=== PATIENT | male | born 1975 | race Caucasian/White ===

== ENCOUNTER 2021-05-15 17:24 | Emergency (ER) | payer MEDICARE, OTHER ==
[~2021-05-15] VITALS: Ht 170.2 cm; Wt 83.9 kg
--- NOTE | 2021-05-15 17:37 | NUR ---
TO ER BED 7, FROM [facility] WITNESSED SEIZURE [id number], NON VERBAL, CONNECTED TO MONITOR
[2021-05-15] MEDS ORDERED: LORA2VIA11 IM (17:43)
[2021-05-15] MEDS ORDERED: AMAN100T GT (17:43)
[2021-05-15] MEDS ORDERED: POLY17PO4 GT (17:43)
[2021-05-15] MEDS ORDERED: OXCA300T15 GT (17:43)
[2021-05-15] MEDS ORDERED: LACT-209 GT (17:43)
[2021-05-15] MEDS ORDERED: CLON0.2T GT (17:43)
[2021-05-15] MEDS ORDERED: BISA10SU11 RC ×2 (17:43)
[2021-05-15] MEDS ORDERED: METO25TA20 GT (17:43)
[2021-05-15] MEDS ORDERED: METO-295 GT (17:43)
[2021-05-15] MEDS ORDERED: ACET-868 GT (17:43)
[2021-05-15] MEDS ORDERED: CHLO473M5 MM (17:43)
[2021-05-15] MEDS ORDERED: LEVE500T20 GT (17:43)
[2021-05-15] MEDS ORDERED: DOCU50LI GT (17:43)
[2021-05-15] MEDS ORDERED: BACL10TA GT (17:43)
[2021-05-15] MEDS ORDERED: PHEN125O3 GT (17:43)
[2021-05-15] MEDS ORDERED: ONDA4VIA52 IM (17:43)
--- NOTE | 2021-05-15 17:55 | NUR ---
INTERIOR DESIGN TEACHER AT PT'S BEDSIDE
[2021-05-15 18:07] LABS: BASOPHILS % (AUTO) 0.2 % (0.0-2.0); EOSINOPHILS % (AUTO) 1.9 % (0.0-6.0); HEMATOCRIT 46 % (39-51); LYMPHOCYTES # (AUTO) 0.4 K/uL (0.8-4.8); LYMPHOCYTES % (AUTO) 7.8 % (20.0-44.0); MEAN CORPUSCULAR HGB CONC 35 g/dl (31.0-36.0); MEAN CORPUSCULAR VOLUME 96 fL (80-96); MONOCYTES # (AUTO) 0.5 K/uL (0.1-1.30); MONOCYTES % (AUTO) 8.4 % (2.0-12.0); NEUTROPHILS # (AUTO) 4.5 K/uL (1.8-8.9); NEUTROPHILS % (AUTO) 81.7 % (43.0-81.0); PLATELET COUNT (AUTO) 194 K/uL (150-450); WHITE BLOOD COUNT (AUTO) 5.5 K/uL (4.3-11.0)
[2021-05-15 18:16] LABS: CALCIUM, SERUM 8.9 mg/dL (8.5-10.1); CREATININE 0.7 mg/dL (0.6-1.3); POTASSIUM 3.7 mmol/L (3.5-5.1)
[2021-05-15 18:24] LABS: BILIRUBIN,DIRECT 0.2 mg/dL (0.0-0.2); BILIRUBIN,TOTAL 0.4 mg/dL (0.2-1.0)
[2021-05-15] MEDS ORDERED: LEVETIRACETAM (500MG) 500 MG in IV NS 0.9% 100 ML IV SCH (19:00)
[2021-05-15] MEDS ORDERED: LEVETIRACETAM (500MG) 500 MG/5 ML VIAL IV ONE (19:26)
--- NOTE | 2021-05-15 20:13 | NUR ---
DONNELL SIMON STAFF FROM [facility]
--- NOTE | 2021-05-15 21:01 | NUR ---
ATTEMPTED TO CALL ALFRED FROM [facility] WITH NO ANSWER X3 FOR JOE.
--- NOTE | 2021-05-15 21:06 | NUR ---
GAVE REPORT TO ALFRED NORIEGA [facility] FOR JOE
--- NOTE | 2021-05-15 21:15 | NUR ---
[facility] CALLED ETA 10-15MIN
--- NOTE | 2021-05-15 21:25 | NUR ---
SABRINA 210 AT BEDSIDE FOR PT TRANSPORT BACK TO HER FACILITY.
--- NOTE | 2021-05-15 21:29 | NUR ---
REPORT GIVEN TO EMT. PT IS IN STABLE CONDITION FOR TRANSPORT. IV REMOVED, INTACT CATH AND DRESSIGN IN PLACE.
[2021-05-15 21:31] VITALS: BP 128/76
== END 2021-05-15 21:31 | disposition home or self-care (01) ==
LOC: ER 17:28
DX: G40.909 Epilepsy, unspecified, not intractable, without status epilepticus (principal); I10 Essential (primary) hypertension; K21.9 Gastro-esophageal reflux disease without esophagitis; E78.5 Hyperlipidemia, unspecified; Z93.1 Gastrostomy status; Z79.899 Other long term (current) drug therapy
CPT/HCPCS: 36415; 71045; 80048; 80076; 80185; 85025; 93005; 96365; 99285; J1953 ×2; J7030 ×2